=== PATIENT | male | born 1990 | race African-American/Black ===

== ENCOUNTER 2024-01-12 09:52 | Emergency (ER) | payer MEDICAID ==
[~2024-01-12] VITALS: Ht 182.9 cm; Wt 85.0 kg
[2024-01-12 10:12] VITALS: O2SAT 100
[2024-01-12] MEDS ORDERED: BACITRACIN ZINC OINT UDPKT TOP ONE (10:30)
[2024-01-12] MEDS ORDERED: TETANUS, DIPHTHERIA, PERTUSSIS VAC/PF 0.5ML (>10YR OLD) IM ONE (10:30)
[2024-01-12] MEDS ORDERED: LIDOCAINE HCL/PF 1% 10 MG/ML 5ML VIAL INFIL ONE (10:30)
[2024-01-12] MEDS ORDERED: KETOROLAC 15MG/ML VIAL IM ONE (10:30)
[2024-01-12] MEDS ORDERED: NAPR-1176 MT (11:00)
[2024-01-12] MEDS: KETOROLAC 30MG/ML VIAL IM SCH (12:15)
[2024-01-12] MEDS: TETANUS, DIPHTHERIA, PERTUSSIS VAC/PF 0.5ML (>10YR OLD) IM ONE (12:15)
[2024-01-12] MEDS ORDERED: KETOROLAC 15MG/ML VIAL IM NR (12:15)
[2024-01-12] MEDS: LIDOCAINE HCL/PF 1% 10 MG/ML 5ML VIAL INFIL NR (12:15)
[2024-01-12] MEDS: BACITRACIN ZINC OINT UDPKT TOP NR (12:15)
[2024-01-12 13:27] VITALS: BP 138/88; PULSE 76; RESP 18; TEMP 98.3
== END 2024-01-12 13:41 | disposition home or self-care (01) ==
LOC: ER 09:52
DX: S86.012A Strain of left Achilles tendon, initial encounter (principal); Z98.890 Other specified postprocedural states; X58.XXXA Exposure to other specified factors, initial encounter; Y93.67 Activity, basketball; Y92.89 Other specified places as the place of occurrence of the external cause; Y99.8 Other external cause status
CPT/HCPCS: 99283; 73610; 90715; 96372; J1885